=== PATIENT | female | born 1960 | race Caucasian/White ===

== ENCOUNTER → 2019-09-26 09:55 | Outpatient (CLI) | payer BC, SELFPAY ==
--- NOTE | ~2019-09-26 | US_ITS ---
EXAMINATION: US thyroid EXAM DATE: 09/26/2019 11:30 INDICATION: Nontoxic single thyroid nodule. Biopsy years ago, benign results. TECHNIQUE: Multiple grayscale and Doppler images of the thyroid were obtained (by a technologist who performed the scan) and subsequently reviewed. Individual nodules and recommendations may be reporte d in accordance with TI-RADS system as designated by the 2017 ACR White Paper TI-RADS committee. Comp tashi is made to prior examination from 11/08/2010. FINDINGS: The right thyroid lobe measures 5.1 x 1.7 x 1.6 cm, the left measuring 5.2 x 1.7 x 1.8 cm. These dime nsions are mildly enlarged. Relatively homogeneous thyroid echogenicity. There is a nodule in the inferior pole of the left lobe measuring 1.3 x 0.5 x 0.8 centimeters, solid (2 points), hypoechoic (2 points), wider than tall, smooth margin, without echogenic foci, category T R4 for this nodule. This is the largest nodule identified, measured 9 x 5 x 6 mm in 2010. There are scattered other subcentimeter nodules not likely clinically significant. IMPRESSION: Multinodular goiter, largest nodule demonstrating modest interval growth compared to exam from 2010. Most likely benign. This may have also been previously biopsied given history provided. Reviewed, dictated and finalized at location B. IMPRESSION: Multinodular goiter, largest nodule demonstrating modest interval g rowth compared to exam from 2010. Most likely benign. This may have also been p reviously biopsied given history provided.
== END ==
PROVIDERS: Visit Provider Otolaryngology
DX: E04.2 Nontoxic multinodular goiter (principal)
CPT/HCPCS: 76536

== ENCOUNTER → 2021-01-01 01:51 | Outpatient (CLI) | payer BC, SELFPAY ==
[2021-01-01 17:56] LABS: SARS-CoV-2 RNA PCR Positive
== END ==
PROVIDERS: PCP Nurse Practitioner Adult Health; Visit Provider Nurse Practitioner Adult Health
DX: U07.1 COVID-19 (principal)
CPT/HCPCS: C9803; U0003; U0005

== ENCOUNTER 2021-01-08 09:19 | Outpatient (RCR) | payer BC, SELFPAY ==
[2021-01-08] MEDS: FAMOTIDINE 20 MG TABLET PO (10:50)
[2021-01-08] MEDS: diphenhydrAMINE HCl CAP 25 MG CAPSULE PO (10:51)
[2021-01-08] MEDS: ACETAMINOPHEN 325 MG TABLET 650 MG PO (10:53)
[2021-01-08 11:00] VITALS: BP 151/81; PULSE 83; RESP 16; TEMP 36.3; O2SAT 100
--- NOTE | 2021-01-08 11:24 | PC.NURSE ---
Patient only took one Tylenol before infusion because she had taken a Tylenol at home.
[2021-01-08 12:28] VITALS: BP 153/79
--- NOTE | 2021-01-09 12:47 | PC.NURSE ---
Spoke to Ms Childress and she stated she feels better today, the cough is the only thing that is keeping her down some. She has no questions at this time for me.
== END 2021-01-08 16:00 ==
LOC: AMCINF 09:19
PROVIDERS: PCP Nurse Practitioner Adult Health; Visit Provider Internal Medicine Hematology & Oncology
DX: U07.1 COVID-19 (principal); I10 Essential (primary) hypertension
CPT/HCPCS: A9270; M0243; Q0243

== ENCOUNTER → 2021-11-07 10:17 | Outpatient (CLI) | payer BC, SELFPAY ==
--- NOTE | ~2021-11-07 | XR_ITS ---
EXAMINATION: XR chest 2V 11/07/2021 13:57 INDICATION: Cough PROCEDURE: 2 view chest COMPARISON: 10/09/2014 FINDINGS: The lungs are clear. The cardiomediastinal silhouette is within normal limits. There are no pleural effusions. There is no pneumothorax suspected. IMPRESSION: 1: NO ACUTE CARDIOPULMONARY DISEASE. Reviewed, dictated and finalized at location B.
== END ==
PROVIDERS: PCP Nurse Practitioner Adult Health; Visit Provider Nurse Practitioner Adult Health
DX: R05.9 Cough, unspecified (principal)
CPT/HCPCS: 71046

== ENCOUNTER 2022-07-31 10:28 | Outpatient (CLI) | payer BC, SELFPAY ==
--- NOTE | ~2022-07-31 | XR_ITS ---
EXAMINATION: XR chest 2V 07/31/2022 10:39 INDICATION: Cough for 2 weeks. Asthma. PROCEDURE: 2 view chest COMPARISON: 11/07/2021 FINDINGS: The lungs are clear. The cardiomediastinal silhouette is within normal limits. There are no pleural effusions. There is no pneumothorax suspected. IMPRESSION: 1: NO ACUTE CARDIOPULMONARY DISEASE. Reviewed, dictated and finalized at location L.
== END 2022-07-31 10:29 | disposition home or self-care (01) ==
LOC: ANHBWCIMG 10:29
PROVIDERS: PCP Nurse Practitioner Adult Health; Visit Provider Nurse Practitioner Adult Health
DX: R05.9 Cough, unspecified (principal)
CPT/HCPCS: 71046

== ENCOUNTER 2024-01-06 08:14 | Outpatient (CLI) | payer BC, SELFPAY ==
[2024-01-06 20:30] LABS: Basophils Absolute Auto 0.1 K/mm3 (0.0-0.1); Basophils Percent Auto 1.1 % (0.2-1.2); Eosinophils Absolute Auto 0.3 K/mm3 (0-0.3); Eosinophils Percent Auto 4.6 % (0-4.4); Hematocrit 45.9 % (37.0-47.0); Hemoglobin 14.9 g/dL (12.0-15.0); Immature Granulocyte Absolute 0.03 K/mm3 (0.00-0.031); Immature Granulocyte Percent A 0.4 % (0-0.5); Lymphocytes Absolute Auto 2.33 K/mm3 (0.9-3.2); Lymphocytes Percent Auto 31.4 % (18.3-44.2); Mean Corpuscular HGB Conc 32.5 g/dl (32-36); Mean Corpuscular Hemoglobin 26.5 pg (26-34); Mean Corpuscular Volume 81.7 fl (80-100); Mean Platelet Volume 9.4 fl (7.4-10.4); Monocytes Absolute Auto 0.5 K/mm3 (0.1-0.6); Monocytes Percent Auto 7.2 % (2.6-8.5); Neutrophils Absolute Auto 4.1 K/mm3 (1.3-6.7); Neutrophils Percent Auto 55.3 % (45.5-73.1); Platelet Count Result 302 k/mm3 (150-375); Red Blood Count 5.62 M/mm3 (4.2-5.4); Red Cell Distribution Width 14.1 % (11.5-14.5); White Blood Count 7.4 K/mm3 (4.5-10.0)
[2024-01-06 21:31] LABS: Thyroid Stimulating Hormone Reflex 0.514 uIU/mL (0.465-4.68)
[2024-01-06 21:36] LABS: Alanine Aminotransferase 13 U/L (6-35); Albumin Level 4.4 g/dL (3.5-5.1); Alkaline Phosphatase 75 U/L (38-126); Anion Gap 7 mmol/L (4-12); Aspartate Amino Transferase 37 U/L (14-36); Bilirubin,Total 0.8 mg/dL (0.2-1.3); Blood Urea Nitrogen 10 mg/dL (7-17); Calcium 8.9 mg/dL (8.4-10.2); Carbon Dioxide 31 mmol/L (22-30); Chloride 98 mmol/L (98-107); Cholesterol 237 mg/dL (0-200); Estimated Glomerular Filt Rate > 60; Glucose 85 mg/dL (65-110); HDL Direct 46 mg/dL; Potassium 3.2 mmol/L (3.4-5.0); Sodium 136 mmol/L (137-145); Triglycerides 188 mg/dL (<150)
[2024-01-06 21:57] LABS: LDL Cholesterol Direct 126 mg/dL
[2024-01-06 22:01] LABS: Hemoglobin A1C 5.1 % (<5.7)
== END 2024-01-06 08:15 | disposition home or self-care (01) ==
LOC: ANHBWCLAB 08:14
PROVIDERS: PCP Nurse Practitioner Adult Health; Visit Provider Nurse Practitioner Adult Health
DX: E78.5 Hyperlipidemia, unspecified (principal)
CPT/HCPCS: 36415; 80053; 80061; 83036; 84443; 85025

== ENCOUNTER 2024-01-19 10:51 | Outpatient (CLI) | payer BC, SELFPAY ==
[2024-01-19 20:22] LABS: Potassium 3.3 mmol/L (3.4-5.0)
== END 2024-01-19 10:52 | disposition home or self-care (01) ==
PROVIDERS: PCP Nurse Practitioner Adult Health; Visit Provider Nurse Practitioner Adult Health
DX: E87.6 Hypokalemia (principal)
CPT/HCPCS: 36415; 84132

== ENCOUNTER 2024-02-01 12:37 | Outpatient (CLI) | payer BC, SELFPAY ==
[2024-02-01 20:17] LABS: Potassium 3.4 mmol/L (3.4-5.0)
== END 2024-02-01 12:38 | disposition home or self-care (01) ==
LOC: ANHBWCLAB 12:38
PROVIDERS: PCP Nurse Practitioner Adult Health; Visit Provider Nurse Practitioner Adult Health
DX: E87.5 Hyperkalemia (principal)
CPT/HCPCS: 36415; 84132

== ENCOUNTER 2024-06-14 10:24 | Outpatient (CLI) | payer BC, SELFPAY ==
--- OUTSIDE RECORDS SUMMARY | 2024-06-14 11:19 | XMS_ITS ---
Author Organization [facility] Address [address] [place] [id number] Care Team Providers Care Title Clerk Automobile Name Role Phone Cece Ag NP Primary Care Provider [phone] Rika Williamson MD PhD Unavailable [phone] Sun Philip MD Unavailable [phone] Noe Grossman MD Unavailable [phone] Rika Williamson MD PhD Unavailable [phone] Danish Carranza DO Unavailable [phone] Active Problems Problem Noted Date Diagnosed Date Hypercholesterolemia 08/23/2018 Encounter for follow-up exam ination after completed treatment for malignant neoplasm 08/19/2018 Personal history of malignant neoplasm of breast 08/19/2018 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 Past Treatment and Therapy Plans No past plan information found. Radiation Treatments * Course C1 VR BILAT BRST 08/02/2018 - 03/09/2019 Treatment Period Energy Fraction Dose Fractions Total Dose Plans Planned VR LT BREAST 08/02/2018 - 03/09/2019 850 3 / 2,550 VR R BREAST 08/03/2018 - 03/09/2019 385 10 / 3,850 Reference Points Delivered PTV R [id number] 08/03/2018 - 03/09/2019 3,850 PTV_L [id number] 08/02/2018 - 03/09/2019 2,550 Resolved Problems Problem Noted Date Diagnosed Date Resolved Date Abnormal mammogram of right breast 05/18/2018 07/23/2018
--- OUTSIDE RECORDS SUMMARY | 2024-06-14 11:19 | XMS_ITS | Encounter Summary ---
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 Gender Identity Not on file Sexual Orientation Not on file documented as of this encounter Plan of Treatment Not on file documented as of this encounter Procedures Procedure Name Priority Date/Time Associated Diagnosis Comments SARS-COV-2 (COVID-19) IN HOUSE Routine 07/24/2019 11:25 AM CDT documented in this encounter Results * SARS-COV-2 (COVID-19) IN HOUSE (07/24/2019 11:25 AM CDT) COVID-19 PCR Not detected Not detected, Invalid 07/25/2019 5:21 PM CDT [facility] Microbiology SPECIMEN FROM NASOPHARYNGEAL STRUCTURE / Unknown Collection / Unknown 07/24/2019 11:25 AM CDT 07/25/2019 9:36 AM CDT Narrative [facility] - 07/25/2019 5:21 PM CDT This Real Time RT-PCR assay was developed and its performance characteristics determined by [facility]. This test has been authorized by the Food and Drug administration (FDA)under an Emergency Use Authorization (EUA). This test has been validated in accordance with the FDA's guidance document Policy for Diagnostic Testing in Laboratories Certified to perform High Complexity Testing under CLIA prior to Emergency Use Authorization for Coronavirus Disease-2019 during the Public Health Emergency issued on April 09, 2019. FDA independent review of this validation is pending. This test is only authorized for the duration of time the declaration that circumstances exist justifying the authorization of emergency use of in vitro diagnostic tests for detection of SARS-CoV-2 virus and/or diagnosis of COVID-19 infection under section 564(b)(1) of the Act, 21 U.S.C 360bbb-3 (b)(1), unless the authorization is terminated or revoked sooner. Jace Warner MD LAB - MICROBIOLOGY ORDERABL ES Final Result [facility] [address] [place], [place] [address], [place] [phone] documented in this encounter Visit Diagnoses Not on filedocumented in this encounter Additional Health Concerns Infection Onset Date Last Indicated Resolved Time COVID-19 Under Investigation 07/25/2019 07/24/2019 07/25/2019 5:21 PM CDT documented as of this encounter Care Teams Clerical Assistant Relationship Specialty Start Date End Date Julianna Carter MD [address] [place] [phone] PCP - General 01/10/19 documented as of this encounter
--- OUTSIDE RECORDS SUMMARY | 2024-06-14 11:19 | XMS_ITS | Clinical Summary ---
Author Organization [facility] Address [address] [address] Phone Care Team Providers Care Internal Affairs Commander Name Role Phone Cece Ag APRN Primary Care Provider [phone] Allergies Active Allergy Reactions Criticality Noted Date Comments Codeine Unknown 11/25/2018 Increased pain and imbalance with codeine based med Meperidine Hcl Other (see Comments) 11/25/2018 Caused confusion and hyperactivity Morphine Swelling High 11/25/2018 Hives and swelling Other-Environmental Allergen (Not Found In Search) Other (see Comments) 11/25/2018 Mold,mildew,tobacco cause sinus pressure headaches Medications hydroCHLOROthia zide 25 MG Tablet Take 25 mg by mouth every evening. Active loratadine (CLARITIN) 10 MG Tablet Take 10 mg by mouth daily as needed. Active fluticasone (FLONASE) 50 MCG/ACT Suspension 1-2 Sprays by Nasal route daily as needed. Use in each nostril as directed. Active diphenhydrAMINE -APAP, sleep, (TYLENOL PM EXTRA STRENGTH PO) Take 1 Tab by mouth nightly as needed. Active Multiple Vitamin (MULTIVITAMINS PO) Take 1 Tab by mouth daily. Active Lactobacillus (ACIDOPHILUS PO) Take 1 Tab by mouth daily as needed. Active Acetaminophen-C affeine (EXCEDRIN TENSION HEADACHE PO) Take 1 Tab by mouth daily as needed. Active Albuterol Sulfate (VENTOLIN HFA IN) take by inhalation as needed. Active omeprazole (PriLOSEC) 40 MG CAPSULE DELAYED RELEASE Take 1 Cap by mouth every morning. 90 Cap 3 0 Active Additional Information Patient not taking.Reported on 01/09/2022 traMADol (ULTRAM) 50 MG TabletIndicatio ns:Hallux limitus of left foot Take 1 Tablet by mouth every 8 hours as needed for Moderate or more severe pain. 15 Tablet 2 Active Active Problems Problem Noted Date Diagnosed Date Hallux limitus of left foot 01/17/2022 Family History Medical History Relation Name Comments Diabetes Father Stroke Father X2 Cancer Maternal Cousin female Prostate Cancer Maternal Uncle 1 Cirrhosis Maternal Uncle 2 Heart Attack Maternal Uncle 3 Arthritis Mother Diabetes Mother BORDERLINE Other-comment Mother hernia Cancer Other cousins esophageal frankie rocio cancer Lung Cancer Paternal Aunt Lung Cancer Paternal Grandfather Leukemia/Lymphoma Paternal Grandmother Prostate Cancer Paternal Uncle Relation Name Status Comments Father Alive Maternal Cousin Maternal Uncle 1 Maternal Uncle 2 Maternal Uncle 3 Mother Alive Other cousins 3 cousins on ma ternal side Paternal Aunt Paternal Grandfather Paternal Grandmother Paternal Uncle Social History Tobacco Use Types Packs/Day Years Used Date Smoking Tobacco: Never Smokeless Tobacco: Never Alcohol Use Standard Drinks/Week Comments Never 0 (1 standard drink = 0.6 oz pur e alcohol) AUDIT-C Answer Date Recorded Frequency of Alcohol Consumption Never 11/25/2018 Average Number of Drinks Not on file 019 Frequency of Binge Drinking Not on file 11/09 Comments Unknown Sex and Gender Information Value Date Recorded Sex Assigned at Not on file Legal Sex Female 10:07 PM CDT Gender Identity Not on file Sexual Orientation Not on file Last Filed Vital Signs Vital Sign Reading Time Taken Comments Blood Pressure 155/86 01/17/2022 11:00 AM NATURAL RESOURCES MANAGER Pulse 83 01/17/2022 11:00 AM NATURAL RESOURCES MANAGER Temperature 36.1 C (97 F) 01/17/2022 11:00 AM NATURAL RESOURCES MANAGER Respiratory Rate 16 01/17/2022 11:00 AM NATURAL RESOURCES MANAGER Oxygen Saturation 98% 01/17/2022 11:00 AM NATURAL RESOURCES MANAGER Inhaled Oxygen Concentration - - Weight 89.6 kg (197 lb 8 oz) 01/17/2022 6:15 AM NATURAL RESOURCES MANAGER Height 165.1 cm (5' 5 ) 01/17/2022 6:15 AM NATURAL RESOURCES MANAGER Body Mass Index 32.87 01/17/2022 6:15 AM NATURAL RESOURCES MANAGER Plan of Treatment Health Maintenance Due Date Last Done Comments Hepatitis C Virus (HCV) Screening 1961 Mammogram 11/28/1971 Cologuard 11/28/2011 Immunochemical Fecal Occult Blood 11/28/2011 Zoster Immunization (1 of 2) 11/28/2011 Pneumococcal Immunization (5 0+ years) (2 of 2 - PCV) 04/18/2020 04/19/2019, 03/30/2002 Influenza Immunization (#1) 2023 SARS-COV-2 Immunization ( - season) 2023 Colonoscopy 07/26/2026 07/27/2019, 12/30/2011 Colorectal Cancer Screening 07/26/2026 Respiratory Syncytial Virus (RSV) Immunization (Adult) (1 - 1-dose 75+ series) 2036 07/27/2019, 12/30/2011 DTaP/Tdap/Td Immunization Discontinued 2018, 11/09/2017 TdaP Immunization Completed 01/10/2019, 11/09/2017 Pneumococcal Immunization Combined Discontinued 04/19/2019, 03/30/2002 Hepatitis B Immunization Aged Out No longer eligible based on patient's age to complete this topic Meningococcal Immunization (ACWY) Aged Out No longer eligible based on patient's age to complete this topic Rotavirus Immunization Aged Out No lo nger eligible based on patient's age to complete this topic Medical Devices Implanted Type Area Boring Mill Set Up Operator Vertical Device Identifier Shelf Expiration Date Model / Serial / Lot [id number] Flexible First Mpj Implant With Grommets, Size 3 Implanted:Qty: 1 on 01/17/2022 by Manav Mayes DPM at [facility] Left: Foot [id number] [facility] 09/24/2026 M30 [id number] / [id number] / [id number] Procedures Procedure Name Priority Date/Time Associated Diagnosis Comments COLONOSCOPY Routine 12/30/2011 from Last 3 Months or Most Recently Relevant to Health Maintenance Results * HM COLONOSCOPY (12/30/2011) Danish Carranza DO PROCEDURE/MINOR SURGICAL ORDERA BLES Final Result from Last 3 Months or Most Recently Relevant to Health Maintenance Insurance [facility] Care Teams Internal Affairs Commander Relationship Specialty Start Date End Date Cece Ag APRN PCP - General Advanced Practice Nurse 12/24/18
--- OUTSIDE RECORDS SUMMARY | 2024-06-14 11:19 | XMS_ITS | Clinical Summary ---
Author Organization [facility] Address [address] [place] [address] Care Team Providers Care Automobile Seat Cover Installer Name Role Phone Julianna Carter MD Primary Care Provider Source Comments [facility],non-owned Affiliates and Associated Physician Practices is amultiple site organization consisting of ambulatory clinics and hospital sitesin [place], [place], [place] and [place]. This disclosure is being madepursuant to the Care Everywhere program and may not contain all information available regarding this patient. 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 Gender Identity Not on file Sexual Orientation Not on file Plan of Treatment Health Maintenance Due Date Last Done Comments COLOGUARD (AGES 45-75) - COL ON CA SCREENING 1961 COLON MONITORING 1961 COLONOSCOPY - COLON CA SCREENING 1961 CT COLONOGRAPHY - COLON CA SCREENING 1961 Colorectal Cancer Screening 1961 FIT - COLON CA SCREENING 1961 FLEX SIG - COLON CA SCREENING 1961 LIPID TESTING 1961 MAMMOGRAM 1961 HIV SCREENING 1976 HEPATITIS C SCREENING 11/23/1979 DTAP/TDAP/TD VACCINES (1 - Tdap) 1980 PNEUMOCOCCAL VACCINE 50+ (1 of 1 - PCV) 11/28/2011 ZOSTER VACCINE (1 of 2) 11/28/2011 COVID-19 VACCINE (1 - 2023-2 5 season) 2023 DEPRESSION SCREENING 02/10/2024 INFLUENZA VACCINE (Season Ended) 2024 Respiratory Syncytial Virus (RSV) Vaccine Pt: or over 60 yrs (1 - 1-dose 75+ series) 2036 HEPATITIS B VACCINE Aged Out No longe r eligible based on patient's age to complete this topic HIB VACCINE Aged Out No longer eligi ble based on patient's age to complete this topic HPV VACCINE Aged Out No longer eligi ble based on patient's age to complete this topic MENINGOCOCCAL (Group B) VACC INE SHARED DECISION-MAKING Aged Out No longer eligibl e based on patient's age to complete this topic MENINGOCOCCAL GROUPS A/C/Y/W VACCINE Aged Out No longer eligible b ased on patient's age to complete this topic Insurance ANTH Care Teams Automobile Seat Cover Installer Relationship Specialty Start Date End Date Julianna Carter MD [address] [place] [address] [address] [place] [phone] PCP - General 01/10/19
--- OUTSIDE RECORDS SUMMARY | 2024-06-14 11:19 | XMS_ITS | Referral Summary ---
Author Organization [facility] Address [facility] [place] [address] Care Team Providers Care Packing Checker Name Role Phone Cece Ag NP Primary Care Provider [phone] Rika Williamson MD PhD Unavailable [phone] Sun Philip MD Unavailable [phone] Noe Grossman MD Unavailable [phone] Rika Williamson MD PhD Unavailable [phone] Danish Carranza DO Unavailable [phone] Allergies Active Allergy Reactions Criticality Noted Date Comments Codeine Meperidine Unknown,Other (See comments) Low 12/23/2010 Caused confusion and hyperactivity Morphine Unknown,Hives,Swelling High 12/23/2010 Hives and swelling Topiramate Other (See comments) Low 08/18/2018 Foot/hand spasm Medications hydroCHLOROthi azide (HYDRODIURIL) 25 mg tabletIndicati ons:hypertensi on Take 1 tablet (25 mg total) by mouth nightly Active loratadine 10 mg capsule Take 10 mg by mouth as needed Active fluticasone propionate (FLONASE) 50 mcg/actuation nasal spray Administer 1 spray into each nostril daily Active ibuprofen (ADVIL,MOTRIN) 400 mg tablet Take 1 tablet (400 mg total) by mouth every 6 (six) hours as needed for pain Active tiZANidine (ZANAFLEX) 2 mg tablet Take 1 tablet (2 mg total) by mouth every 6 (six) hours as needed for muscle spasms Active albuterol HFA (VENTOLIN HFA) 90 mcg/actuation inhaler every 4 hours Active azithromycin (ZITHROMAX) 250 mg tablet TAKE 2 TABLETS BY MOUTH ON DAY 1 AND THEN TAKE 1 TABLET BY MOUTH ONCE A DAY ON DAY 2 THROUGH DAY 5 0 9 Active betamethasone (CELESTONE SOLUSPAN) 6 mg/mL injection Celestone Soluspan 6 mg/mL suspension for injection [facility]# [address]-13 Active ciprofloxacin (CIPRO) 500 mg tablet ciprofloxacin 500 mg tablet Active clindamycin (CLEOCIN) 300 mg capsule clindamycin HCl 300 mg capsule TAKE 1 CAPSULE BY MOUTH THREE TIMES DAILY FOR 10 DAYS Active ergocalciferol (VITAMIN D) 50,000 unit capsule Vitamin D2 50,000 unit capsule Active exemestane (AROMASIN) 25 mg tablet exemestane 25 mg tablet Active fluticasone propion-salmet nelly (ADVAIR DISKUS) 500-50 mcg/dose diskus inhaler daily Activ e levothyroxine (SYNTHROID) 25 mcg tablet daily Active ipratropium-al buterol (DUO-NEB) 0.5-2.5 mg/3 mL nebulizer solution ipratropium-albut nelly 0.5 mg-3 mg(2.5 mg base)/3 mL nebulization soln SAMPLE Active methylPREDNISo lone (MEDROL DOSEPACK) 4 mg Dosepack TAKE BY MOUTH DIRECTED ON INSIDE OF PACKAGE 0 9 Active montelukast (SINGULAIR) 10 mg tablet daily Active triamcinolone (KENALOG) 40 mg/mL injection 1.5 mL (60 mg total) Active fluticasone propionate (FLONASE) 50 mcg/actuation nasal spray fluticasone propionate 50 mcg/actuation nasal spray,suspension Active cyanocobalamin (Vitamin B-12) 1,000 mcg/mL injection 1 mL (1,000 mcg total) Active omeprazole (PriLOSEC) 40 mg capsule Take 1 capsule (40 mg total) by mouth sales agent insurance before breakfast 0 Active phentermine (ADIPEX-P) 37.5 mg tablet daily Activ e Active Problems Problem Noted Date Diagnosed Date Hypercholesterolemia 08/23/2018 Encounter for follow-up exam ination after completed treatment for malignant neoplasm 08/19/2018 Personal history of malignant neoplasm of breast 08/19/2018 Personal history of 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 12/2018 Malignant neoplasm of 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, estrogen receptor positive 06/30/2018 Cancer Staging:Pathologic stage from 07/16/2018: pT1, pN0, cM0, ER+, WY+, HER2- - Signed by Irene Good MD on 07/17/2018 Clinical: Unsigned HTN (hypertension), benign 12/23/2010 Mitral regurgitation 12/23/2010 Nonrheumatic tricuspid valve regurgitation 12/23 Resolved Problems Problem Noted Date Diagnosed Date Resolved Date Abnormal mammogram of right breast 05/18/2018 07/23/2018 Immunizations Immunization Administration Dates Next Due Pneumococcal Polysaccharide PPV23 03/30/2002 Tdap 11/09/2017 Social History Tobacco Use Types Packs/Day Years Used Date Smoking Tobacco: Never Smokeless Tobacco: Never Tobacco Cessation:Counseling Given: Not Answered Alcohol Use Standard Drinks/Week Comments Not Currently 0 (1 standard drink = 0.6 oz pur e alcohol) Comments No Sex and Gender Information Value Date Recorded Sex Assigned at Not on file Legal Sex Female 2:12 AM SOCIAL MEDIA MARKETING MANAGER Gender Identity Not on file Sexual Orientation Not on file Last Filed Vital Signs Vital Sign Reading Time Taken Comments Blood Pressure 161/84 08/18/2018 3:51 PM CDT Pulse 91 08/18/2018 3:51 PM CDT Temperature 37.1 C (98.7 F) 08/18/2018 3:51 PM CDT Respiratory Rate 16 08/18/2018 3:51 PM CDT Oxygen Saturation 97% 08/18/2018 3:51 PM CDT Inhaled Oxygen Concentration - - Weight 67.1 kg (148 lb) 03/08/2024 11:39 AM SOCIAL MEDIA MARKETING MANAGER Height 165.1 cm (5' 5 ) 03/08/2024 11:39 AM SOCIAL MEDIA MARKETING MANAGER Body Mass Index 24.63 03/08/2024 11:39 AM SOCIAL MEDIA MARKETING MANAGER Plan of Treatment Not on file Medical Devices Implanted Type Area Solid Waste Technician Device Identifier Shelf Expiration Date Model / Serial / Lot Titanium Clip-05/21/2018 Implanted:Qty: 1 on 05/21/2018 Breast [employer] Eviva 13cm Identifier Biopsy Site [id number] - [id number] Implanted:Qty: 1 on 03/23/2023 at [facility] Right: Breast [employer] computer [facility] [id number] 09/18/2023 [facility]13 / / [id number] Procedures Procedure Name Priority Date/Time Associated Diagnosis Comments DIAGNOSTIC MAMMOGRAM BILATERAL W COLIN Schedule Routine, Read Routine (OP Routine) 03/08/2024 12:56 PM SOCIAL MEDIA MARKETING MANAGER Personal history of malignant neoplasm of breast History of bilateral breast cancer from Last 3 Months or Most Recently Relevant to Health Maintenance Results * Diagnostic Mammogram Bilateral W Colin (03/08/2024 12:56 PM SOCIAL MEDIA MARKETING MANAGER) Anatomical Region Laterality Modality Breast Bilateral Mammography 03/08/2024 2:16 PM SOCIAL MEDIA MARKETING MANAGER Impressions 03/08/2024 2:25 PM SOCIAL MEDIA MARKETING MANAGER No suspicious abnormality in either breast. OVERALL FINAL ASSESSMENT: BI-RADS Category 2: Benign. RECOMMENDATION: Recommend follow-up diagnostic breast imaging in 12 months with a bilateral mammogram for continued follow-up of biopsy-proven ALH. Dictated by: Ariel Blas D.O. The radiology attending physician has personally reviewed this study, and had reviewed and/or edited this written report and agrees with it. Electronically signed by: Valentina Lewis M.D. Narrative 03/08/2024 2:25 PM SOCIAL MEDIA MARKETING MANAGER EXAMINATION: BILATERAL DIGITAL DIAGNOSTIC MAMMOGRAM INCLUDING CAD AND BILATERAL DIGITAL BREAST TOMOSYNTHESIS HISTORY: 63-year-old woman presents for 6 month follow-up mammogram for an asymmetry in the right breast biopsied to be atypical lobular hyperplasia. Additionally she presents for her annual screening mammogram. She has a history of bilateral invasive ductal carcinoma treated with bilateral breast conservation therapy in 2019. COMPARISON: Multiple prior studies, most recently 09/04/2023 and dating back to 03/20/2011. TECHNIQUE: Full field digital mammographic views of BOTH breasts were performed, including computer aided detection (CAD) and BILATERAL digital breast tomosynthesis (DBT). BREAST PARENCHYMAL COMPOSITION: The breasts are heterogeneously dense, which may obscure small masses. MAMMOGRAM FINDINGS: Right: Unchanged appearance of the previously described asymmetry in the outer upper right breast biopsy proven to be atypical lobular hyperplasia. There are post breast conservation therapy changes on the right. Left: There are post breast conservation therapy changes on the left. There is no suspicious abnormality in either breast. Procedure Note Valentina Lewis MD - 03/08/2024 EXAMINATION: BILATERAL DIGITAL DIAGNOSTIC MAMMOGRAM INCLUDING CAD AND BILATERAL DIGITAL BREAST TOMOSYNTHESIS HISTORY: 63-year-old woman presents for 6 month follow-up mammogram for an asymmetry in the right breast biopsied to be atypical lobular hyperplasia. Additionally she presents for her annual screening mammogram. She has a history of bilateral invasive ductal carcinoma treated with bilateral breast conservation therapy in 2019. COMPARISON: Multiple prior studies, most recently 09/04/2023 and dating back to 03/20/2011. TECHNIQUE: Full field digital mammographic views of BOTH breasts were performed, including computer aided detection (CAD) and BILATERAL digital breast tomosynthesis (DBT). BREAST PARENCHYMAL COMPOSITION: The breasts are heterogeneously dense, which may obscure small masses. MAMMOGRAM FINDINGS: Right: Unchanged appearance of the previously described asymmetry in the outer upper right breast biopsy proven to be atypical lobular hyperplasia. There are post breast conservation therapy changes on the right. Left: There are post breast conservation therapy changes on the left. There is no suspicious abnormality in either breast. IMPRESSION: No suspicious abnormality in either breast. OVERALL FINAL ASSESSMENT: BI-RADS Category 2: Benign. RECOMMENDATION: Recommend follow-up diagnostic breast imaging in 12 months with a bilateral mammogram for continued follow-up of biopsy-proven ALH. Dictated by: Ariel Blas D.O. The radiology attending physician has personally reviewed this study, and had reviewed and/or edited this written report and agrees with it. Electronically signed by: Valentina Lewis M.D. Sun Philip MD IMG MAMMO PROCEDURES Fi nal Result from Last 3 Months or Most Recently Relevant to Health Maintenance Insurance [facility] ACCESS BLUE ACCESS CHOICE [place] BLUE ACCESS OOS BLUE [employer] CHOICE OOS BLUE [facility] CHOICE OOS Care Teams Packing Checker Relationship Specialty Start Date End Date Cece Ag NP PCP - General Nurse Practitioner 04/29/18 Rika Williamson MD PhD [id number] [facility] [address] [place] [address] Radiation Oncologist Radiation Oncology 07/23/18 Sun Philip MD [address] [place] [address] Referring Physician Surgical Oncology 08/17/18 Noe Grossman MD [address] [place] [address] Medical Oncologist/Brick Catcher Medical Oncology 08/17/18 Rika Williamson MD PhD [address] [place] [address] Radiation Oncologist Radiation Oncology 08/17/18 Danish Carranza DO [address] [place] [address] Consulting Physician Gastroenterology 08/18/18
--- OUTSIDE RECORDS SUMMARY | 2024-06-14 11:19 | XMS_ITS | Encounter Summary ---
Author Organization [facility] Address [address] [facility] [place] [address] Phone Care Team Providers Care Welding Equipment Repairer Name Role Phone Cece Ag APRN Primary Care Provider [phone] Reason for Referral * Radiology Services (Routine) - Closed Specialty Diagnoses / Procedures Referred By Contac t Referred To Contact Radiology Diagnoses Pre-op testing Procedures EKG 12 LEAD Manav Mayes DPM [address] [place] [address] Phone: tel: fax: Referral ID Status Reason Start Date Expiration Date Visits Re quested Visits Authorized [id number] Closed 01/09/2022 1 1 NING MGR Encounter Details Date Type Department Care Team (Latest Contact Info) Description 01/09/2022 [facility] [address] [place] [address] Manav Mayes DPM [address] [place] [address] Pre-op testing (Primary Dx) Social History Tobacco Use Types Packs/Day Years [...] on file Sexual Orientation Not on file COVID-19 Exposure Response Date Recorded In the last 10 days, have yo u been in contact with someone who was confirmed or suspected to have Coronavirus/COVID-19? No / Unsure 01/09/2022 12:04 PM TRAINING MGR documented as of this encounter Plan of Treatment Not on file documented as of this encounter Results * (ABNORMAL) BASIC METABOLIC PANEL W/ CALCIUM TOTAL (01/14/2022 2:27 PM TRAINING MGR) SODIUM 138 136 - 144 mmol/L 01/14/2022 2:54 PM TRAINING MGR [facility] POTASSIUM 3.8 3.5 - 5.1 mmol/L 01/14/2022 2:54 PM [facility] CHLORIDE 98(L) 100 - 110 mmol/L 01/14/2022 2:54 PM [facility] CO2, VENOUS 30 22 - 32 mmol/L 01/14/2022 2:54 PM [facility] ANION GAP 13.8 8.0 - 20.0 mmol/L 01/14/2022 2:54 PM TRAINING MGR [facility] GLUCOSE 105(H) 70 - 99 mg/dL 01/14/2022 2:54 PM [facility] BUN 14 8 - 23 mg/dL 01/14/2022 2:54 PM [facility] CREATININE, BLOOD 0.87 0.60 - 1.10 mg/dL 01/14/2022 2:54 PM [facility] BUN/CREATININE RATIO 16 12 - 20 ratio 01/14/2022 2:54 PM [facility] CALCIUM 10.1 8.9 - 10.3 mg/dL 01/14/2022 2:54 PM TRAINING MGR [facility] IS THE PATIENT REQUIRED TO BE FASTING? No 01/14/2022 2:54 PM TRAINING MGR [facility] GFR, ESTIMATED >60 >=60 01/14/2022 2:54 PM TRAINING MGR [facility] Comment: Creatinine Clearance is the preferred criteria for selecting drug dose adjustments in renally impaired patients. The GFR is provided as additional pertinent clinical information. GFR is reported in mL/min/1.73 sq m. Calculation based on the Chronic Kidney Disease Epidemiology Collaboration (CKD- EPI) equation refit without adjustment for race. GFR, EST. >60 >=60 022 2:54 PM TRAINING MGR [facility] GFR, EST. NONAFRICAN >60 >=60 01/14/2022 2:54 PM TRAINING MGR [facility] Blood Venipuncture / Unknown 01/14/2022 2:27 PM TRAINING MGR 01/14/2022 2:33 PM TRAINING MGR us Manav Mayes DPJana CHEMISTRY ORDERABLES Final R esult [facility] [address] [place] [address] * EKG 12 LEAD (01/14/2022 2:23 PM TRAINING MGR) Ventricular Rate 78 BPM EXTERNAL EKG Atrial Rate 78 BPM EXTERNAL EKG P-R Interval 172 ms EXTERNAL EKG QRS Duration 98 ms EXTERNAL EKG Q-T Duration 388 ms EXTERNAL EKG QTC CALCULATION 442 ms EXTERNAL EKG P Sherwood 63 degrees EXTERNAL EKG R [place]wood 0 degrees EXTERNAL EKG T [place] 38 degrees EXTERNAL EKG 01/14/2022 2:23 PM TRAINING MGR Impressions EXTERNAL EKG - 01/15/2022 12:42 PM TRAINING MGR Normal sinus rhythm Normal ECG No previous ECGs available Confirmed by Demetrio Townsend ([id number]) on 01/15/2022 12:42:46 PM Narrative Procedure Note Demetrio Lara MD - 01/15/2022 IMPRESSION: Normal sinus rhythm Normal ECG No previous ECGs available Confirmed by Demetrio Townsend ([id number]) on 01/15/2022 12:42:46 PM Manav Mayes DPM IMG ECG ORDERABLES Final Res ult Performing Organization Address City/[facility] Co de Phone Number EXTERNAL EKG * SARS-COV-2 BY MOLECULAR (01/14/2022 2:16 PM TRAINING MGR) SARSCOV2 NOT DETECTED (Referenc e Range for this test is Not Detected) [facility] MORALES ID NOW B 01/14/2022 2:52 PM TRAINING MGR [facility] Comment:This test was perfor med by a MOLECULAR, NON-PCR method Other NASAL STRUCTURE / Unknown Non-Phlebotomy Collection / Unknown 01/14/2022 2:16 PM TRAINING MGR 01/14/2022 2:19 PM TRAINING MGR Narrative [facility] - 01/14/2022 2:52 PM TRAINING MGR This test has been authorized by the FDA under an Emergency Use Authorization (EUA) only. Negative results should be treated as presumptive and, if inconsistent with clinical signs and symptoms or necessary for patient management, the patient should be tested with an alternative molecular assay. Negative results do not preclude SARS-CoV-2 infection or any other respiratory pathogen. Additional information for Clinicians can be found at: https://www.fda.gov/media/663056/download Additional information for Patients can be found at: https://www.fda.gov/media/902354/download Manav Mayes DPM MICROBIOLOGY - GENERAL ORDER XOCHITL Final Result Performing Organization Address City/[facility] Co de Phone Number [facility] [address] [place] [address] documented in this encounter Visit Diagnoses Diagnosis Pre-op testing- Primary Preoperative examination, unspecified Pre-op testing Preoperative examination, unspecified documented in this encounter Care Teams Welding Equipment Repairer Relationship Specialty Start Date End Date Cece Ag APRN PCP - General Advanced Practice Nurse 12/24/18 documented as of this encounter
--- OUTSIDE RECORDS SUMMARY | 2024-06-14 11:19 | XMS_ITS | Clinical Summary ---
Author Organization [facility] Address [address] [place] [address] Care Team Providers Care Terrazzo Worker Helper Name Role Phone Cece Ag NP Primary Care Provider [phone] Rika Williamson MD PhD Unavailable [phone] Sun Philip MD Unavailable [phone] Noe Grossman MD Unavailable [phone] Rika Williamson MD PhD Unavailable [phone] Danish Carranza DO Unavailable [phone] Allergies Active Allergy Reactions Criticality Noted [...] Celestone Soluspan 6 mg/mL suspension for injection 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 12/2018 Malignant neoplasm of 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, estrogen receptor positive 06/30/2018 Cancer Staging:Pathologic stage from 07/16/2018: pT1, pN0, cM0, ER+, CO+, HER2- - Signed by Irene Good MD on 07/17/2018 Clinical: Unsigned HTN (hypertension), benign 12/23/2010 Mitral regurgitation 12/23/2010 Nonrheumatic tricuspid valve regurgitation 12/23 Resolved Problems Problem Noted Date Diagnosed Date Resolved Date Abnormal mammogram of right breast 05/18/2018 07/23/2018 Immunizations Immunization Administration Dates Next Due Pneumococcal Polysaccharide PPV23 03/30/2002 Tdap 11/09/2017 Surgical History Surgery Date Site/Laterality Comments BREAST BIOPSY 02/10/1976 - 02/08/1977 Left abscess PILONIDAL CYST / SINUS EXCISION 02/09/1981 - 02/08/1982 TUBAL LIGATION 02/10/1992 - 02/08/1993 ENDOMETRIAL ABLATION 02/09/2009 - 02/08/2010 BREAST BIOPSY 05/21/2018 Right BREAST BIOPSY 05/28/2018 Left BREAST CYST ASPIRATION ABLATION uterine BREAST LUMPECTOMY BREAST BIOPSY 03/23/2023 Right Medical History Medical History Date Comments Hypertension Chronic headaches Asthma Bronchitis Cancer (HCC) Pneumonia Family History Medical History Relation Name Comments Transient ischemic attack Father Prostate cancer Father's Brother Lung cancer Father's Sister Lung cancer Paternal Grandfather Leukemia Paternal Grandmother Relation Name Status Comments Father Father's Brother Father's Sister Paternal Grandfather Paternal Grandmother Social History Tobacco Use Types Packs/Day Years Used Date Smoking Tobacco: Never Smokeless Tobacco: Never Tobacco Cessation:Counseling Given: Not Answered Alcohol Use Standard Drinks/Week Comments Not Currently 0 (1 standard drink = 0.6 oz pur e alcohol) Comments No Sex and Gender Information Value Date Recorded Sex Assigned at Not on file Legal Sex Female 2:12 AM DIGITAL FORENSICS INVESTIGATOR Gender Identity Not on file Sexual Orientation Not on file Obstetrics History Last Filed Vital Signs Vital Sign Reading Time Taken Comments Blood Pressure 161/84 08/18/2018 3:51 PM CDT Pulse 91 08/18/2018 3:51 PM CDT Temperature 37.1 C (98.7 F) 08/18/2018 3:51 PM CDT Respiratory Rate 16 08/18/2018 3:51 PM CDT Oxygen Saturation 97% 08/18/2018 3:51 PM CDT Inhaled Oxygen Concentration - - Weight 67.1 kg (148 lb) 03/08/2024 11:39 AM DIGITAL FORENSICS INVESTIGATOR Height 165.1 cm (5' 5 ) 03/08/2024 11:39 AM DIGITAL FORENSICS INVESTIGATOR Body Mass Index 24.63 03/08/2024 11:39 AM DIGITAL FORENSICS INVESTIGATOR Plan of Treatment Health Maintenance Due Date Last Done Comments Cervical Cancer Screening 1961 Colon Cancer Screening-Colonoscopy 1961 Depression Screening 1961 Hepatitis C Screening 1961 Hepatitis B Screening 11/28/1979 Regular Well Visit/Exam 18-64 11/28/1979 Zoster Vaccine (1 of 2) 1980 Pneumococcal vaccine <65 (2 of 2 - PCV) 03/30/2003 03/30/2002 Influenza Vaccine (#1) 2023 Breast Cancer Screening-Mammogram 03/08/2025 03/08/2024, 02/20/2023, 02/11/2022, Additional history exists DTaP/Tdap/Td Vaccine (2 - Td or Tdap) 11/10/2027 11/09/2017 Medical Devices Implanted Type Area Electrician Control Equipment Device Identifier Shelf Expiration Date Model / Serial / Lot Titanium Clip-05/21/2018 Implanted:Qty: 1 on 05/21/2018 Breast [employer] [facility] Eviva 13cm Identifier Biopsy Site [id number] - [id number] Implanted:Qty: 1 on 03/23/2023 at [facility] Right: Breast [employer] [id number] 09/18/2023 [facility] MEDICINETERES[facility]-BRIA VA-13 / / [id number] Procedures Procedure Name Priority Date/Time Associated Diagnosis Comments DIAGNOSTIC MAMMOGRAM BILATERAL W COLIN Schedule Routine, Read Routine (OP Routine) 03/08/2024 12:56 PM DIGITAL FORENSICS INVESTIGATOR Personal history of malignant neoplasm of breast History of bilateral breast cancer from Last 3 Months or Most Recently Relevant to Health Maintenance Results * Diagnostic Mammogram Bilateral W Colin (03/08/2024 12:56 PM DIGITAL FORENSICS INVESTIGATOR) Anatomical Region Laterality Modality Breast Bilateral Mammography 03/08/2024 2:16 PM DIGITAL FORENSICS INVESTIGATOR Impressions 03/08/2024 2:25 PM DIGITAL FORENSICS INVESTIGATOR No suspicious abnormality in either breast. OVERALL [...] Valentina Lewis M.D. Narrative 03/08/2024 2:25 PM DIGITAL FORENSICS INVESTIGATOR EXAMINATION: BILATERAL DIGITAL DIAGNOSTIC MAMMOGRAM INCLUDING CAD [...] Most Recently Relevant to Health Maintenance Insurance [employer] ACCESS Member Subscriber Plan / Payer (Ef fective 2018-Present) Name:Aline Lundberg Relation to Subscriber:Spouse Name:TAL LUNDBERG Subscriber ID:Not on file Date of :1963 (Home) Address: [address] [place] [address] Payer ID:[id number] ([facility]) Type:[employer] Address: [facility] [id number] ACCESS [facility] BLUE ACCESS OOS BLUE [employer] CHOICE OOS BLUE ACC CHOICE OOS Care Teams Terrazzo Worker Helper Relationship Specialty Start Date End Date Cece Ag NP PCP - General Nurse Practitioner 04/29/18 Rika Williamson MD PhD [address] [facility] [address] [place], [place] [id number] Radiation Oncologist Radiation Oncology 07/23/18 Sun Philip MD [address] [place], [place] [id number] Referring Physician Surgical Oncology 08/17/18 Noe Grossman MD [address] [place], [place] [id number] Medical Oncologist/Touch Up Carver Medical Oncology 08/17/18 Rika Williamson MD PhD [address] [place] [address] Radiation Oncologist Radiation Oncology 08/17/18 Danish Carranza DO [address] [place] [address] Consulting Physician Gastroenterology 08/18/18
--- OUTSIDE RECORDS SUMMARY | 2024-06-14 11:19 | XMS_ITS | Clinical Summary ---
Author Organization [facility] Address [address] [place] [id number] Phone Care Team Providers Care Perianesthesia Manager Name Role Phone Julianna Carter MD Primary Care Provider [phone] Allergies Active Allergy Reactions Criticality Noted Date Comments Meperidine Unknown 12/23/2010 Morphine Unknown 12/23/2010 Topiramate Other (See Comments) Foot/hand spasm Medications aspirin-acetami nophen-caffeine (EXCEDRIN MIGRAINE) 250-250-65 mg Oral Tab Take 1 Tab by mouth every 4 hours as needed. Active estradiol (ESTRACE) 0.01 % (0.1 mg/g) Vaginal Crea Insert vaginally twice weekly. Active ibuprofen (MOTRIN) 200 mg Oral tablet Take 2 Tabs by mouth every 6 hours as needed. Active hydrochlorothia zide (HYDRODIURIL) 12.5 mg Oral tablet Take 1 Tab by mouth daily. Active lisinopril (PRINIVIL) 20 mg Oral tablet Take 1 Tab by mouth daily. 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 Active Active Problems Patient Care Coordination No te Formatting of this note migh t be different from the original. 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 Gender Identity Not on file Sexual Orientation Not on file Last Filed Vital Signs Vital Sign Reading Time Taken Comments Blood Pressure 138/76 12/23/2010 11:20 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 Pulse 70 12/23/2010 11:20 AM TENTER 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 Temperature - - Respiratory Rate - - Oxygen Saturation - - Inhaled Oxygen Concentration - - Weight 78.9 kg (174 lb) 12/23/2010 11:00 AM TENTER 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 Height 162.6 cm (5' 4 ) 12/23/2010 11:00 AM TENTER 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 Body Mass Index 29.87 12/23/2010 11:00 AM TENTER 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 Plan of Treatment Health Maintenance Due Date Last Done Comments DTAP/TDAP/TD VACCINES (1 - Tdap) 1980 HPV/Cotest (21-29) 1982 CERVICAL CANCER SCREENING 11/28/1991 HPV/Cotest (30-65) 11/28/1991 PAP SMEAR 11/28/1991 BREAST CANCER SCREENING 2001 COLORECTAL SCREENING 2006 Colorectal Cancer Screening 2006 FIT-DNA Q 3 years 2006 FIT/FOBT Q 1 year 2006 Flex Sig/CT Colonography Q 5 years 2006 ZOSTER VACCINE (1 of 2) 11/28/2011 INFLUENZA VACCINE (#1) 2023 RSV VACCINE (60+ or ) (1 - 1-dose 75+ series) 2036 Insurance BLUE ACCESS/TRUE BLUE PPO Care Teams Perianesthesia Manager Relationship Specialty Start Date End Date Julianna Carter MD [address] [place] [id number] [facility] - General 01/26/15
[2024-06-14 20:13] LABS: Basophils Absolute Auto 0.1 K/mm3 (0.0-0.1); Basophils Percent Auto 0.8 % (0.2-1.2); Eosinophils Absolute Auto 0.3 K/mm3 (0-0.3); Eosinophils Percent Auto 4.1 % (0-4.4); Hematocrit 48.5 % (37.0-47.0); Immature Granulocyte Absolute 0.02 K/mm3 (0.00-0.031); Immature Granulocyte Percent A 0.3 % (0-0.5); Lymphocytes Absolute Auto 2.58 K/mm3 (0.9-3.2); Lymphocytes Percent Auto 42.3 % (18.3-44.2); Mean Corpuscular HGB Conc 30.9 g/dl (32-36); Mean Corpuscular Volume 84.1 fl (80-100); Mean Platelet Volume 9.6 fl (7.4-10.4); Monocytes Absolute Auto 0.4 K/mm3 (0.1-0.6); Monocytes Percent Auto 6.7 % (2.6-8.5); Neutrophils Absolute Auto 2.8 K/mm3 (1.3-6.7); Neutrophils Percent Auto 45.8 % (45.5-73.1); Platelet Count Result 313 k/mm3 (150-375); Red Blood Count 5.77 M/mm3 (4.2-5.4); Red Cell Distribution Width 14.5 % (11.5-14.5); White Blood Count 6.1 K/mm3 (4.5-10.0)
[2024-06-14 20:22] LABS: Alanine Aminotransferase 15 U/L (6-35); Albumin Level 4.7 g/dL (3.5-5.1); Alkaline Phosphatase 76 U/L (38-126); Anion Gap 10 mmol/L (4-12); Aspartate Amino Transferase 45 U/L (14-36); Bilirubin,Total 0.5 mg/dL (0.2-1.3); Blood Urea Nitrogen 9 mg/dL (7-17); Calcium 9.3 mg/dL (8.4-10.2); Carbon Dioxide 28 mmol/L (22-30); Chloride 103 mmol/L (98-107); Cholesterol 230 mg/dL (0-200); Estimated Glomerular Filt Rate > 60; Glucose 72 mg/dL (65-110); HDL Direct 55 mg/dL; Sodium 141 mmol/L (137-145); Triglycerides 173 mg/dL (<150)
[2024-06-14 20:33] LABS: LDL Cholesterol Direct 104 mg/dL
== END 2024-06-14 10:25 | disposition home or self-care (01) ==
LOC: ANHBWCLAB 10:25
PROVIDERS: PCP Nurse Practitioner Adult Health; Visit Provider Nurse Practitioner Adult Health
DX: E78.5 Hyperlipidemia, unspecified (principal)
CPT/HCPCS: 36415; 80053; 80061; 85025

== ENCOUNTER 2024-11-17 11:43 | Outpatient (CLI) | payer BC, SELFPAY ==
[2024-11-17 19:33] LABS: Cholesterol 252 mg/dL (0-200); HDL Direct 55 mg/dL; Triglycerides 123 mg/dL (<150)
[2024-11-17 19:37] LABS: Alanine Aminotransferase 15 U/L (6-35); Albumin Level 4.6 g/dL (3.5-5.1); Alkaline Phosphatase 77 U/L (38-126); Anion Gap 10 mmol/L (4-12); Aspartate Amino Transferase 49 U/L (14-36); Bilirubin,Total 0.6 mg/dL (0.2-1.3); Blood Urea Nitrogen 13 mg/dL (7-17); Calcium 9.1 mg/dL (8.4-10.2); Carbon Dioxide 25 mmol/L (22-30); Chloride 103 mmol/L (98-107); Estimated Glomerular Filt Rate > 60; Glucose 84 mg/dL (65-110); Potassium 4.1 mmol/L (3.4-5.0); Sodium 138 mmol/L (137-145); Total Protein 7.9 g/dL (6.3-8.2)
[2024-11-17 19:57] LABS: Free T4 Free Thyroxine 1.16 ng/dL (0.78-2.19)
[2024-11-17 20:12] LABS: Thyroid Stimulating Hormone 0.585 uIU/mL (0.465-4.680)
[2024-11-17 20:14] LABS: Hemoglobin A1C 4.7 % (<5.7)
== END 2024-11-17 11:44 | disposition home or self-care (01) ==
LOC: ANHBWCLAB 11:44
PROVIDERS: PCP Nurse Practitioner Adult Health; Visit Provider Nurse Practitioner Adult Health
DX: E78.5 Hyperlipidemia, unspecified (principal); Z13.9 Encounter for screening, unspecified; I10 Essential (primary) hypertension
CPT/HCPCS: 36415; 80053; 80061; 83036; 84439; 84443